=== PATIENT | female | born 1950 | race Caucasian/White ===

== ENCOUNTER → 2019-06-25 12:57 | Outpatient (CLI) | payer MEDICARE, BC, SELFPAY ==
--- NOTE | 2019-06-25 13:07 | XR_ITS ---
PROCEDURE: XR CHEST 2V CLINICAL HISTORY: COUGH COMPARISON: CXR CHEST(2 VIEWS-NOT PORTABLE) from 10/16/2013 FINDINGS: The cardiomediastinal silhouette and pulmonary vascularity are within normal limits. There is hyperinflation with attenuation of the peripheral pulmonary vessels consistent with COPD/small airway disease. No acute bony abnormalities. IMPRESSION: COPD/small airway disease otherwise negative. No lobar consolidation or collapse Dictated by: Dakota Wright MD 06/25/2019 13:56 Electronically signed by Dakota Wright MD in [place] 06/25/2019 13:56
== END ==
PROVIDERS: PCP Family Medicine; Visit Provider Family Medicine
DX: R05 Cough (principal)
CPT/HCPCS: 71046

== ENCOUNTER → 2021-06-22 12:34 | Outpatient (CLI) | payer MEDICARE, BC, SELFPAY ==
--- NOTE | 2021-06-22 12:38 | CT_ITS ---
FINAL REPORT TECHNIQUE: Axial CT images of the abdomen were obtained without contrast. Coronal reformatted images were also obtained.This study was performed with techniques to keep radiation doses as low as reasonably achievable (ALARA). Individualized dose reduction techniques using automated exposure control or adjustment of mA and/or kV according to the patient's size were employed. CLINICAL HISTORY: ABN LIVER FUNCTION STUDY left side abd pain FINDINGS: The lung bases are clear. The liver has an unremarkable appearance, without evidence of mass. There are gallstones in the gallbladder. There is no evidence of biliary ductal dilatation. The pancreas appears normal. The spleen size is within normal limits. There are 2 left renal stones measuring up to 4 mm. There is no hydronephrosis. There is no evidence of adenopathy. No localized inflammatory processes identified. IMPRESSION: Two left renal stones measuring up to 4 mm. Cholelithiasis. Reviewed, Interpreted and Dictated by Odilon Delvalle III, MD Transcribed by Chela Lee Authenticated by Odilon Delvalle III, MD on 06/22/2021 03:22:13 PM [facility]
== END ==
PROVIDERS: PCP Family Medicine; Visit Provider Family Medicine
DX: R10.11 Right upper quadrant pain (principal); R94.5 Abnormal results of liver function studies
CPT/HCPCS: 74150